=== PATIENT | male | born 1980 | race Caucasian/White ===

== ENCOUNTER 2016-12-27 01:30 | Inpatient (IN) | payer MEDICAID ==
[~2016-12-27] VITALS: Ht 182.9 cm; Wt 83.0 kg
--- NOTE | ~2016-12-27 | PN ---
Unit #: [id number] #: [id number] Patient: CHANDLER MCGUIRE [id number] [facility] [address] [place] [address] [id number] I MR#: [id number] NAME: CHANDLER MCGUIRE ROOM: P211 Age: 36 Sex: M Admission Date: 12/27/2016 : 1980 Attending Physician: Juan Millard M.D. Admitting Physician: Juan Millard M.D. Primary Care Physician: Primary Care Physician Iesha BEYER PROGRESS NOTES DATE 12/31/2016 DISCUSSION Mr. Mcguire is a 36-year-old, white male who was seen today and chart was reviewed and case was discussed with the staff. He appears to be doing fairly well and has been calm and cooperative with treatment recommendation. He has been taking the medication and tolerating them fairly well. MENTAL STATUS EXAM Young white male who was casually dressed with fair personal hygiene, appears to be in no acute distress or discomfort. He was awake and alert with intact orientation. His mood was anxious with congruent affect. He denies any suicidal or homicidal ideation. His insight and judgement remains slightly impaired. TREATMENT PLAN 1. We will continue him on his current treatment protocol. We will monitor his response to the medication and make further adjustments as needed. 2. We will continue to follow up. Dictated by... Daniela Huerta/evelin TD: 01/02/2017 03:16 JOB #: [id number] Unit #: [id number] #: [id number] Patient: CHANDLER MCGUIRE PROGRESS NOTES Page 1 of 1 X uJan Millard MD PROGRESS NOTE
--- NOTE | ~2016-12-27 | PN ---
Unit #: [id number] #: [id number] Patient: CHANDLER MCGUIRE [id number] [facility] [address] [place] [address] [id number] MR#: [id number] NAME: CHANDLER MCGUIRE ROOM: P211 Age: 36 Sex: M Admission Date: 12/27/2016 : 1980 Attending Physician: Juan Millard M.D. Admitting Physician: Juan Millard M.D. Primary Care Physician: Primary Care Physician Iesha BEYER PROGRESS NOTES DATE 12/28/2016 DISCUSSION Mr. Mcguire is a 36-year-old white male who was seen today and chart was reviewed and case was discussed with the staff. He has been anxious, withdrawn and rather seclusive to himself. Meanwhile, he has been taking medications and tolerating them fairly well with no reported side effects. MENTAL STATUS EXAMINATION Young white male who was casually dressed with fair personal hygiene and appears to be in no acute distress or discomfort. He was awake and alert with intact orientation. His mood was anxious and depressed with congruent affect. His speech is slow and goal-directed. He denies any suicidal or homicidal ideation. His insight and judgement remains slightly impaired. TREATMENT PLAN 1. Will continue on his current treatment protocol. Will monitor his response to the medications and make further adjustments as needed. 2. Will continue to follow up. Dictated by... Daniela Huerta/alma TD: 12/28/2016 15:16 JOB #: [id number] Unit #: [id number] #: [id number] Patient: CHANDLER MCGUIRE PROGRESS NOTES Page 1 of 1 X Juan Millard MD PROGRESS NOTE
--- NOTE | ~2016-12-27 | PN ---
Unit #: [id number] #: [id number] Patient: CHANDLER MCGUIRE [id number] [facility] [address] [place] [address] [id number] MR#: [id number] NAME: CHANDLER MCGUIRE ROOM: P211 Age: 36 Sex: M Admission Date: 12/27/2016 : 1980 Attending Physician: Juan Millard M.D. Admitting Physician: Juan Millard M.D. Primary Care Physician: Primary Care Physician Iesha BEYER PROGRESS NOTES DATE 12/28/2016 DISCUSSION Mr. Mcguire is a 36-year-old white male who was seen today and chart was reviewed and case was discussed with the staff. He has been anxious, withdrawn, depressed and rather seclusive to himself. Meanwhile, he has been cooperative with treatment recommendations and has been taking medications and tolerating them fairly well with no reported side effects. MENTAL STATUS EXAMINATION Young white male who was casually dressed with fair personal hygiene and appears to be in no acute distress or discomfort. He was awake and alert on interaction with intact orientation. His mood was anxious with congruent affect. His speech is slow and goal-directed. He denies any suicidal or homicidal ideation. His insight and judgement remains slightly impaired. TREATMENT PLAN 1. Will continue him on his current medications and treatment protocol. Will monitor his response and make further adjustments as needed. 2. Will continue to follow up. Dictated by... Daniela Huerta/alma TD: 12/28/2016 15:09 JOB #: [id number] Unit #: [id number] #: [id number] Patient: CHANDLER MCGUIRE PROGRESS NOTES Page 1 of 1 X Juan Millard MD X PROGRESS NOTE
--- NOTE | ~2016-12-27 | PA ---
Unit #: [id number] #: [id number] Patient: CHANDLER MCGUIRE [id number] [facility] [address] [place] [address] [id number] I MR#: [id number] NAME: CHANDLER MCGUIRE ROOM: P211 Age: 36 Sex: M Admission Date: 12/27/2016 : 1980 Date of Assessment: 12/27/2016 Attending Physician: Juan Millard M.D. Admitting Physician: Juan Millard M.D. Primary Care Physician: Primary Care Physician No PSYCHIATRIC ASSESSMENT DATE OF SERVICE 12/27/2016. IDENTIFYING DATA Mr. Mcguire is a 36-year-old, single, white male, who is a resident of [place], [place], and was transferred to from [facility]. CHIEF COMPLAINT "I've been drinking nonstop." HISTORY OF PRESENT ILLNESS Mr. Mcguire is a 36-year-old white male with a history of alcohol dependence, who came to the hospital emergency room with a blood alcohol level of 384 and stated that he has been drinking nonstop and he needs to quit and intentionally cut his leg and reported having suicidal ideation tonight and that he lost his apartment several days ago and now that he is homeless and is drinking and has not been able to function and does endorse increasing depression, anxiety, irritability, feelings of hopelessness and helplessness, and suicidal ideations with intent and plan and as such, recommendation for inpatient level of care for safety and stabilization was made and the patient was stepped up to the inpatient unit. SUBSTANCE ABUSE HISTORY The patient reports history of alcohol dependence stating that he has been drinking 2 to 3 gallons of vodka on a daily basis. He denies any other substance abuse issues. PAST PSYCHIATRIC HISTORY The patient has had a history of chemical dependency treatment at [facility] several times, and review of the medical records indicate currently he is not active in any treatment program, is not seeing a psychiatrist, and is not taking any psychotropic medications. PAST MEDICAL HISTORY The patient reports history of lung and brain cancer. ALLERGIES Bactrim and zinc. CURRENT MEDICATIONS None. Unit #: [id number] #: [id number] Patient: CHANDLER MCGUIRE PERSONAL AND SOCIAL HISTORY A 36-year-old white male, who reports that he is single, unemployed, and essentially homeless and has poor social support system. MENTAL STATUS EXAMINATION Young white male, who was casually dressed with fair personal hygiene, appears to be in no acute distress or discomfort. He was awake and alert on interaction with intact orientation to time, place, and person. His mood was anxious and depressed with a congruent affect. His speech was slow and restricted in content. His thought processes were disorganized with some looseness of associations and suicidal ideations. His insight and judgment remain significantly impaired. DIAGNOSTIC IMPRESSION Psychiatric: Alcohol dependence, moderate, and acute withdrawals; alcohol-induced mood disorder. Medical: The patient reports history of brain and lung cancer. Stressors: Moderate psychosocial stressors. TREATMENT PLAN 1. The patient has presented with a history of mood disorder, and has been decompensating and will need inpatient hospitalization for safety and stabilization. We will start him back on his home medications and we will adjust the medications and monitor response. 2. Supportive therapy was provided to the patient. 3. Safe, structured, and nourishing environment will be provided. ESTIMATED LENGTH OF STAY 4 to 5 days. ABILITY TO HELP SELF Limited. WILLINGNESS TO HELP SELF The patient appears to be willing to help self. STRENGTHS 1. Communicative. 2. Cooperative. PROBLEMS 1. Chronic dysphoric symptoms. 2. Chronic chemical dependency. 3. Poor social support system. DISCHARGE CRITERIA This will be contingent upon the patient's ability to go through detox without having any significant withdrawal symptoms as well as his ability to stay safe to himself, particularly after discharge from the hospital. Dictated by... Juan Millard M.D. [facility]/bhanu Unit #: [id number] #: [id number] Patient: CHANDLER MCGUIRE TD: 12/27/2016 23:38 JOB #: [id number] PSYCHIATRIC ASSESSMENT Page 1 of 1 X Juan Millard MD X PSYCHIATRIC ASSESSMENT
--- NOTE | ~2016-12-27 | PN ---
Unit #: [id number] #: [id number] Patient: CHANDLER MCGUIRE [id number] [facility] [address] [place] [address] [id number] I MR#: [id number] NAME: CHANDLER MCGUIRE ROOM: P211 Age: 36 Sex: M Admission Date: 12/27/2016 : 1980 Attending Physician: Juan Millard M.D. Admitting Physician: Juan Millard M.D. Primary Care Physician: Primary Care Physician Iesha BEYER PROGRESS NOTES DATE 12/29/2016 DISCUSSION Mr. Mcguire is a 36-year-old white male with alcohol dependence and mood disorder who was seen today and chart was reviewed and case was discussed with the staff. He remains anxious, withdrawn, agitated and irritable, depressed and reports that his leg has been hurting and wound needs to be cleaned after he cut himself when he was drunk and was making suicide attempt and reports that he is doing good and he has been having some persistent mood disturbance with anger, agitated and irritability and persistent suicidal thoughts. MENTAL STATUS EXAMINATION Young white male who was casually dressed with fair personal hygiene and appears to be in no acute distress or discomfort. He was awake and alert on interaction with intact orientation. His mood was anxious and depressed with congruent affect. His speech is slow and tangential. His thought processes were disorganized with some looseness of associations and flight of ideas. His insight and judgement remains significantly impaired. TREATMENT PLAN 1. Will continue on his current medications and treatment protocol. Will monitor his response to medications and make further adjustments as needed. Will maintain him on his current level of precautions. Will also request wound care. 2. Will continue to follow up. Dictated by... Daniela Huerta/alma TD: 12/29/2016 21:33 JOB #: [id number] Unit #: [id number] #: [id number] Patient: CHANDLER MCGUIRE PROGRESS NOTES Page 1 of 1 X Juan Millard MD X PROGRESS NOTE
--- NOTE | ~2016-12-27 | HP ---
Unit #: [id number] #: [id number] Patient: GERARD HOLT [id number] [place] [address] [id number] I MR#: [id number] NAME: GERARD HOLT ROOM: P211 Age: 36 Sex: M Admission Date: 12/27/2016 : 1980 Attending Physician: Juan Millard M.D. Admitting Physician: Juan Millard M.D. Primary Care Physician: Primary Care Physician No HISTORY AND PHYSICAL HISTORY OF PRESENT ILLNESS Gerard is a 36 year old admitted to [address] [place] [address] because of his abuse of alcohol. He is detoxing. PAST MEDICAL HISTORY 1. Long history of alcohol abuse. 2. History of withdrawal seizures. 3. History of self-harming. He has a significant new area along his left calf. PAST SURGICAL HISTORY Nothing reported. ALLERGIES Tylenol, sulfa. SOCIAL HISTORY He does not smoke. Drinks 2 to 3 gallons of vodka on a daily basis. Denies illicit drug use. FAMILY HISTORY Medically noncontributory. REVIEW OF SYSTEMS CONSTITUTIONAL: No fever or chills. HEENT: Denies any sore throat, ear pain or runny nose. CARDIOVASCULAR: Denies chest pain, irregular heart rhythm or palpitations. CHEST: Denies shortness of breath or cough. No hemoptysis. GASTROINTESTINAL: Denies nausea, vomiting, diarrhea or chronic constipation. ENDOCRINE: Denies history of increased thirst or urination. No recent significant weight loss or gain. GENITOURINARY: Denies dysuria, frequency, or hematuria. SKIN: Denies any rashes. HEMATOLOGIC: Denies history of increased bleeding or bruising. MUSCULOSKELETAL: Denies any hot, swollen joints. No generalized muscle pain. NEUROLOGIC: Denies problems with vision or speech. No frequent, severe headaches. No numbness, tingling or weakness in any extremities. Denies loss of bladder or bowel control. CURRENT MEDICATIONS 1. Detox protocol. Unit #: [id number] #: [id number] Patient: GERARD HOLT 2. Remeron 15 mg q.h.s. 3. Keflex 500 mg q.i.d. 4. Ibuprofen 800 mg q. 6 hours p.r.n. PHYSICAL EXAMINATION GENERAL: Alert, thin, in no apparent distress. VITAL SIGNS: Blood pressure 122/82, heart rate 80, respirations 16, temperature 98.6. WEIGHT: 183. HEIGHT: 6 feet 0 inches. SKIN: Warm and dry without rash. He has a significant long deep laceration that is secured with wally along the left lateral calf. There is adequate skin approximation without redness, swelling or heat. HEENT: Normocephalic. TMs not viewed. Oral and nasal passages clear. Conjunctivae clear. PERRLA. EOMs intact. NECK: Supple without lymphadenopathy or thyromegaly. HEART: Regular rate and rhythm without murmur. LUNGS: Clear. ABDOMEN: Soft, nontender. : Not done. EXTREMITIES: No evidence of cyanosis, clubbing or edema. Moves all without focal deficit. NEUROLOGICAL: Unable to complete extended exam. He moves all extremities without focal deficit except he has a left foot drop. He is currently in a splint secured with an michael wrap. Sensation is diminished in all of his left toes. IMPRESSION 1. Psychiatric admission. 2. Significant laceration to his left lateral thigh sustained prior to admission. Most likely peroneal nerve damage. He does have foot drop. RECOMMENDATIONS PSYCHIATRIC: Per psychiatrist. MEDICAL: 1. See no contraindication to participate in facility's activities. 2. Patient will need to follow up with PCP/neuro upon discharge. He will need the assistance of a wheelchair during this admission. MEDICAL PROGNOSIS Good. MEDICAL CONDITION Stable. Dictated by... Suzie Trevizo P.A.-C. for Daniela Gary/alma TD: 12/27/2016 20:42 JOB #: [id number] Unit #: [id number] #: [id number] Patient: GERARD HOLT HISTORY AND PHYSICAL Page 1 of 1 X Suzie Trevizo HISTORY AND PHYSICAL
--- NOTE | ~2016-12-27 | DS ---
Unit #: [id number] #: [id number] [facility] [id number] [facility] [address] [place] [address] [id number] I MR#: [id number] NAME: CHANDLER MCGUIRE ROOM: [facility] Age: 36 Sex: M Admission Date: 12/27/2016 : 1980 Discharge Date: 01/01/2017 Attending Physician: Juan Millard M.D. Primary Care Physician: Primary Care Physician No DISCHARGE SUMMARY IDENTIFICATION DATA Mr. Mcguire is a 36-year-old single white male who is a resident of [place], [place], and was transferred to us from [facility] Emergency Room. DISCHARGE DIAGNOSES PSYCHIATRIC: Alcohol dependence, moderate, in acute withdrawal. Alcohol-induced mood disorder. MEDICAL: History of brain and lung cancers. STRESSORS: Mild psychosocial stressors. HISTORY OF PRESENT ILLNESS Same as in initial psychiatric evaluation. PAST PSYCHIATRIC HISTORY Same as in initial psychiatric evaluation. PAST MEDICAL HISTORY Same as in initial psychiatric evaluation. HOSPITAL COURSE The patient was admitted to the adult chemical dependency and psychiatric unit at [facility] susan Marques and was oriented to the hospital environment. Routine p.r.n. medications were initiated, and he was started on the alcohol detox protocol. He was also started on Remeron to help with the depression and was closely monitored. He was initially seen to be anxious, restless, agitated, and irritable, and he was going through acute detox. However, he was able to come out of the detox without any complications and was wanting to go home and was willing to continue treatment on outpatient basis. As such it was decided that she will be discharged home. We will continue treatment on outpatient basis. DISCHARGE MEDICATIONS Remeron 15 mg at bedtime for depression. CONDITION ON DISCHARGE Stable. PROGNOSIS Fair. Dictated by... Unit #: [id number] #: [id number] Patient: CHANDLER MCGUIRE Daniela Huerta/demarcus TD: 01/04/2017 09:07 JOB #: [id number] DISCHARGE SUMMARY Page 1 of 1 X Juan Millard MD X DISCHARGE SUMMARY
--- NOTE | ~2016-12-27 | A ---
[facility] Nutrition Therapy DATE: 12/29/16 Patient: CHANDLER HOLT Physician: NISAF Address: NO PERMANET ADDRESS Room/Bed: [address], Zip: [place] [address] Admit Date: 12/27/16 Date of : [birth year] Height: 6 0 Weight: [phone] NUTRITIONAL ASSESSMENT: REASON: PT SEEN FOR 1PT NUTRITION RISK DUE TO UNINTENTIONAL WEIGHT LOSS. ADMISSION DIAGNOSIS IS SI AND ETOH ABUSE PMH: BRAIN AND LUNG CANCER, DETOX SZ Anthropometrics: PT IS 36 YO MALE. HT 6', WT 183LBS, BMI 24. IBW 170, 107%IBW Labs: NO LABS AVAILABLE Meds: DETOX PROTOCOL, REMERON, KEFLEX, MVI, LORAZAPAM Assessment: PT IS HOMELESS. PT REPORTS DRINKING 2-3 GAL VODKA DAILY. PT REPORTS HE USED TO SMOKE CRACK AND MARIJUANA. PT IS ACTIVELY DETOXING. PT HAS SELF-INFLICTED CUT ON LOWER L-LEG WHICH REQUIRED 16 ALBINO. PT DENIES N/V. PT HAS FAIR APPETITE, BUT REPORTS THAT HIS DIETARY PREFERENCES ARE NOT BEING HONORED, SO HE DOES NOT EAT MUCH HERE. PT REPORTS 30 OR MORE LBS OF WEIGHT LOSS IN PAST 4-6 WEEKS THAT HE ATTRIBUTES TO HIS CANCER AND DRINKING. THIS DIETITIAN OFFERED HIM ENSURE BUT HE REFUSED. Dx: UNINTENTIONAL WEIGHT LOSS R/T CURRENT CONDITION AEB PT REPORT OF 30+ LBS WEIGHT LOSS IN 4-6 WEEKS. Intervention: REGULAR DIET, PSYCH, MEDS PER MD, Monitoring, Evaluation and Goals: 1. PO INTAKE >50% OF MEALS 2. PREVENT FURTHER WEIGHT LOSS AND MAINTAIN CURRENT HEALTHY WEIGHT MONITOR: WEIGHT FREQUENTLY, LABS WHEN AVAILABLE, PO/FLUID INTAKE Recommendations: 1. CONTINUE CURRENT REGULAR DIET WITH NO CAFFEINE AND ENCOURAGE FLUIDS 2. ENCOURAGE ADEQUATE PO INTAKE FOR MEALS AND SNACKS 3. OBTAIN WEIGHTS ROUTINELY 4. RD WILL INPUT DIET PREFERENCES Respectfully, [facility] Nutrition Therapy DATE: 12/29/16 Patient: CHANDLER HOLT Physician: TARIQ Address: NO PERMANET ADDRESS Room/Bed: [address], Zip: [place] [address] Admit Date: 12/27/16 Date of : [birth year] Height: 6 0 Weight: [phone], LD [facility] cc: client file
--- NOTE | ~2016-12-27 | PN ---
Unit #: [id number] #: [id number] Patient: CHANDLER MCGUIRE [id number] [facility] [address] [place] [address] [id number] I MR#: [id number] NAME: CHANDLER MCGUIRE ROOM: P211 Age: 36 Sex: M Admission Date: 12/27/2016 : 1980 Attending Physician: Juan Millard M.D. Admitting Physician: Juan Millard M.D. Primary Care Physician: Primary Care Physician Iesha HARRISON NOTES DATE OF SERVICE: 12/30/2016 SUBJECTIVE Mr. Mcguire is a 36-year-old white male, who was seen today and chart was reviewed, and case was discussed with the staff. He reports feeling better than yesterday and has been showing improvement in his detox symptoms as well as depression and anxiety. He has been compliant with treatment recommendation and has been taking medications and tolerating them fairly well with no reported side effects. MENTAL STATUS EXAMINATION Young white male, who was casually dressed with fair personal hygiene, appears to be in no acute distress or discomfort. He was awake and alert on interaction with intact orientation. His mood was anxious with a congruent affect. His speech was slow and goal directed. He denies any suicidal or homicidal ideation. His insight and judgment remain slightly impaired. TREATMENT PLAN 1. We will continue his current medications and treatment protocol. We will monitor his response to medications and make further adjustments as needed. 2. We will continue to follow up. Dictated by... Daniela Huerta/bhanu TD: 01/01/2017 23:51 JOB #: [id number] Unit #: [id number] #: [id number] Patient: CHANDLER MCGUIRE PROGRESS NOTES Page 1 of 1 X Juan Millard MD PROGRESS NOTE
== END 2017-01-01 17:30 | disposition home or self-care (01) | DRG 897 ==
LOC: P2S 03:51
PROC: HZ2ZZZZ Detoxification Services for Substance Abuse Treatment (ICD-10-PCS; principal; 2016-12-27)
DX: F10.239 Alcohol dependence with withdrawal, unspecified (principal); F10.24 Alcohol dependence with alcohol-induced mood disorder; Y90.8 Blood alcohol level of 240 mg/100 ml or more; Z85.841 Personal history of malignant neoplasm of brain; Z85.118 Personal history of other malignant neoplasm of bronchus and lung
CPT/HCPCS: 86592